=== PATIENT | female | born 2000 | race Two or more races ===

== ENCOUNTER 2024-10-12 10:05 | Observation (INO) | payer MEDICAID ==
[~2024-10-12] VITALS: Ht 162.6 cm; Wt 109.8 kg
--- NOTE | 2024-10-14 05:13 | DVHDS2 ---
Physician Discharge Progress N Final Diagnosis: Term IUP, false labor Operations or Procedures: Operations or Procedures NST, reactive Labor check, not in labor Condition on Discharge: Stable Disposition: Home Discharge Instructions: Diet: Regular Activity: No Restrictions, As Tolerated Follow Up/Referral: PRn Medications: NA Follow Up Care: Discharge Statement: "Patient was advised to return to the ER or call 911 if any headaches, dizziness, shortness of breath, chest pain, abdominal pain, bleeding, fevers, or worsening of medical condition. Patient was counseled about treatment plan, medications, possible side effects, patientverbalized understanding. All questions were answered to the best of my ability. This discharge took greater then 30 minutes in planning, reviewing documentation, counseling the patient, and discussing with other team members." Visit Coding OBGYN Date of Service: Oct 14, 2024 Billing Provider: PEGGY CALDERON DO [employer] Common Visit Codes: 50552-KEF/OBS SAME DATE (MOD) [employer] Procedure Codes: 17642-23- NON-STRESS TEST PEGGY CALDERON DO Oct 14, 2024 05:13
== END 2024-10-13 22:44 | disposition home or self-care (01) ==
LOC: LDRP 10-13 21:17
PROVIDERS: ADMIT Obstetrics & Gynecology; ATTEND Obstetrics & Gynecology
DX: O47.9 False labor, unspecified (principal); O48.0 Post-term pregnancy; Z98.890 Other specified postprocedural states; Z79.899 Other long term (current) drug therapy; Z3A.38 38 weeks gestation of pregnancy
CPT/HCPCS: 59025; 81002; 94760; G0378